=== PATIENT | male | born 1960 | race African-American/Black ===

== ENCOUNTER 2017-04-20 20:27 | Emergency (ER) | payer SELFPAY ==
[2017-04-20] MEDS ORDERED: Oxymetazoline HCl 0.05% ( 15 ML ) ONE (21:50)
[2017-04-20] MEDS ORDERED: Acetaminophen 500 MG TAB ONE (22:07)
== END 2017-04-20 22:25 | disposition home or self-care (01) ==
LOC: ERS 20:27
DX: R04.0 Epistaxis (principal); F17.220 Nicotine dependence, chewing tobacco, uncomplicated
CPT/HCPCS: 99283